=== PATIENT | male | born 1960 | race Caucasian/White ===

== ENCOUNTER → 2024-02-24 08:46 | Outpatient (CLI) | payer OTHER, SELFPAY ==
[2024-02-24 10:38] LABS: Follicle Stimulating Hormone 8.29 mIU/mL; Luteinizing Hormone 3.96 mIU/mL
[2024-02-24 11:37] LABS: Prolactin 11.7 ng/mL (3.7-17.9)
[2024-02-24 11:53] LABS: Testosterone 230 ng/dL (71.8-623)
== END ==
LOC: LAB 08:50
PROVIDERS: Referring Provider Urology; Visit Provider Urology
DX: E23.7 Disorder of pituitary gland, unspecified (principal)
CPT/HCPCS: 36415; 83001; 83002; 84146; 84403

== ENCOUNTER → 2024-03-14 07:58 | Outpatient (CLI) | payer OTHER, SELFPAY ==
[2024-03-14 10:33] LABS: Testosterone 281 ng/dL (71.8-623)
[2024-03-14 10:34] LABS: Hemoglobin A1C% w Est Avg Glu 6.5 % (4.0-6.0)
== END ==
PROVIDERS: Referring Provider Urology; Visit Provider Urology
DX: R79.89 Other specified abnormal findings of blood chemistry (principal); E11.9 Type 2 diabetes mellitus without complications; E23.7 Disorder of pituitary gland, unspecified; R39.9 Unspecified symptoms and signs involving the genitourinary system
CPT/HCPCS: 36415; 83036; 84403

== ENCOUNTER → 2024-07-23 09:41 | Outpatient (CLI) | payer OTHER, SELFPAY ==
--- NOTE | 2024-07-23 09:43 | DI.MRI.S_ITS ---
PROCEDURE: MR FOOT RT WO CON INDICATIONS: RT foot pain TECHNIQUE: Multiphasic, multisequence MRI of the forefoot was performed, without intravenous contrast administration. COMPARISON: None. FINDINGS: Image quality: Excellent. Bones and joints: moderate degenerative changes at the medial cuneiform and the navicular articulation, with moderate subchondral cystic changes, and small amount of effusion. No acute fracture. Soft tissues: The visualized plantar fascia is unremarkable. The flexors, and the extensor tendons are unremarkable. Mild subcutaneous edema of the dorsal foot. Severe fatty atrophy of the intrinsic musculature of the foot. The Lisfranc ligament is unremarkable. Mild 3rd intermetatarsal bursitis. 0.2 x 0.8 cm T1 intermediate, T2 hypointense lesion plantar to the 1st intermetatarsal space (07:22), raising concern for Franklin's neuroma. IMPRESSION: 1. Moderate degenerative changes at the medial cuneiform and the navicular articulation. 2. 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 3. Mild 3rd intermetatarsal bursitis. Dictated by: Radha Hampton M.D. on 07/24/2024 at 9:53 Approved by: Radha Hampton M.D. on 07/24/2024 at 10:03
== END ==
PROVIDERS: Referring Provider Nurse Practitioner Family; Visit Provider Nurse Practitioner Family
DX: M25.571 Pain in right ankle and joints of right foot (principal); M77.51 Other enthesopathy of right foot and ankle; M19.071 Primary osteoarthritis, right ankle and foot
CPT/HCPCS: 73718

== ENCOUNTER → 2024-08-16 15:19 | Outpatient (CLI) | payer OTHER, SELFPAY ==
--- NOTE | 2024-08-16 15:21 | DI.ECHO.S_ITS ---
[facility] : : [id number] : [place] : : [id number] : : Phone: [phone] Echocardiogram Report + + :Name: DANIS GREEN Study Date: 08/16/2024 Height: 73 in : :Hospital ReadingLocation: Weight: 285 lb : : Gender: Male BSA: 2.5 m2 : :: 1960 Age: 63 yrs BP: 135/91 mmHg: :Reason For Study: EDEMA : :Ordering Physician: BRYAN, : :LOUANN Mariee Performed By: Lopez Barker : :Referring: LOUANN ADAMS : + + Interpretation Summary The ejection fraction is estimated to be 55-60%. Diastolic parameters suggest probable normal left ventricular diastolic function and normal filling pressures. The right ventricle is moderately dilated. The right ventricular systolic function is normal. The right atrium is mildly dilated. No significant valvular abnormalities. Pulmonary artery pressures cannot be estimated because of the lack of a measurable TR jet velocity. The ascending aorta is mildly enlarged, 4.1 cm. Procedure: A two-dimensional transthoracic echocardiogram with color flow and Doppler was performed. The study quality was technically adequate. There is no prior echocardiogram noted for this patient. The patient was in normal sinus rhythm during the exam. Left Ventricle: The left ventricle is normal in size. There is normal left ventricular wall thickness. There is no ventricular septal defect visualized. The ejection fraction is estimated to be 55-60%. There are no focal wall motion abnormalities. Diastolic parameters suggest probable normal left ventricular diastolic function and normal filling pressures. Right Ventricle: The right ventricle is moderately dilated. The right ventricular systolic function is normal. Atria: The left atrial size is normal. The right atrium is mildly dilated. There is no Doppler evidence for an atrial septal defect. Mitral Valve: The mitral valve leaflets appear mildly thickened, but open well. The mitral valve leaflets are mildly calcified. There is no mitral regurgitation noted. Aortic Valve: The aortic valve is trileaflet. The aortic valve opens well. The aortic valve is mildly calcified. There is no aortic valve stenosis. No aortic regurgitation is present. Tricuspid Valve: The tricuspid valve leaflets are thin and pliable. No tricuspid regurgitation. Pulmonary artery pressures cannot be estimated because of the lack of a measurable TR jet velocity. Pulmonic Valve: The pulmonic valve leaflets are thin and pliable; valve motion is normal. There is trace pulmonic regurgitation. Great Vessels: The aortic root is mildly dilated. The ascending aorta is mildly enlarged. The pulmonary artery is normal size. The inferior vena cava was not visualized. Pericardium/ Pleura There is no pericardial effusion. MMode/2D Measurements & Calculations LVIDd: 5.1 cm LVOT diam: 2.5 cm LVIDs: 3.6 cm Ao root diam: 3.9 cm FS: 29.4 % asc Aorta Diam: 4.1 cm EPSS: 0.58 cm IVSd: 1.1 cm LVPWd: 1.0 cm LV cisneros. diameter/BSA (cm/m^2): 2.0 LV sys. diameter/BSA (cm/m^2): 1.4 LA A2 area: 18.1 cm2 RA long axis: 4.7 cm LA A4 area: 35.1 cm2 RA area: 16.3 cm2 LA length (vol): 7.0 cm RA vol: 48.1 ml LA vol: 76.6 ml RA : 19.2 ml/m2 LA vol index: 30.6 ml/m2 RVD1 (basal): 4.8 cm RVD2 (mid): 4.1 cm TAPSE: 2.9 cm Doppler Measurements & Calculations Ao V2 max: 122.5 cm/sec LVOT Max Ryne: 71.8 cm/sec Ao V2 mean: 88.8 cm/sec LV V1 max P.1 mmHg Ao max P.0 mmHg LV V1 VTI: 16.9 cm Ao mean P.5 mmHg SVETLANA(I,D): 3.2 cm2 Ao V2 VTI: 25.3 cm SVETLANA(V,D): 2.8 cm2 sev ratio: 0.67 SVETLANA indexed to BSA (cm^2/m^2): 1.3 MV E max ryne: 47.3 cm/sec PA V2 max: 115.7 cm/sec MV A max ryne: 76.8 cm/sec PA V2 mean: 73.8 cm/sec MV E/A: 0.62 PA mean P.5 mmHg Med Peak E' Ryne: 5.4 cm/sec PA pr(Accel): 55.0 mmHg E/E' med: 8.8 Lat Peak E' Ryne: 7.0 cm/sec E/E' lat: 6.8 E/e' average: 7.8 MV dec time: 0.25 sec SV(LVOT): 80.1 ml Reading Physician:05:02 PM
== END ==
PROVIDERS: PCP Nurse Practitioner Family; Referring Provider Nurse Practitioner Family; Visit Provider Nurse Practitioner Family
DX: I77.810 Thoracic aortic ectasia (principal); I77.89 Other specified disorders of arteries and arterioles; R60.9 Edema, unspecified
CPT/HCPCS: 93306